=== PATIENT | female | born 1975 | race Hispanic/Latino ===

== ENCOUNTER 2018-01-05 09:45 | Emergency (ER) | payer BC ==
[~2018-01-05] VITALS: Ht 162.6 cm; Wt 66.7 kg
--- NOTE | 2018-01-05 10:42 | Diagnostic Imaging Report ---
PROCEDURE:CXR 2 VIEW - HOPD COMPARISON:None. INDICATIONS:Cough for 2 days FINDINGS:The heart and lungs appear normal. Right apical density either represents a bone island within the upper ribs or a calcified granuloma and appears benign.No pulmonary nodules or infiltrates are identified. Costophrenic angles are clear. Regional osseous structures appear unremarkable. CONCLUSION:No acute cardiopulmonary abnormality. Bimal Vargas D.O. Dictated by: Bimal Vargas D.O. on 01/05/2018 at 10:50 Electronically approved by: Bimal Vargas D.O. on 01/05/2018 at 10:50
== END 2018-01-05 11:11 | disposition home or self-care (01) ==
LOC: FSED 09:45
DX: R05 Cough (principal); J20.8 Acute bronchitis due to other specified organisms
CPT/HCPCS: 71046; 87400; 99283